=== PATIENT | female | born 1985 | race Two or more races ===

== ENCOUNTER → 2024-03-23 13:38 | Outpatient (BNVA) | payer OTHER, SELFPAY | PROVIDERS: Visit Provider Physician Assistant Medical | DX: S80.02XA Contusion of left knee, initial encounter (principal); M23.92 Unspecified internal derangement of left knee; S39.012A Strain of muscle, fascia and tendon of lower back, initial encounter; S63.641A Sprain of metacarpophalangeal joint of right thumb, initial encounter; Y35.892A Legal intervention involving other specified means, bystander injured, initial encounter | CPT/HCPCS: 99203 ==